=== PATIENT | female | born 1935 | race Caucasian/White ===

== ENCOUNTER 2016-03-18 18:20 | Emergency (ER) | payer MEDICARE, OTHER ==
--- NOTE | 2016-03-18 18:57 | ER Document Report ---
ED Medical Screen (RME) - General Stated Complaint: STOMACH PAIN Notes: stiff neck for 4 days down to her back, weakness with forgetfullness fever since last night headache started today admits to nausea without vomiting admits pyuria PMH HTN I have greeted and performed a rapid initial assessment of this patient. A comprehensive ED assessment and evaluation of the patient, analysis of test results and completion of the medical decision making process will be conducted by additional ED providers. - Related Data Allergies/Adverse Reactions: No Known Allergies Allergy (Verified 03/18/16 18:51)
--- NOTE | 2016-03-18 22:25 | ER Document Report ---
ED General - General Chief Complaint: Fever Stated Complaint: STOMACH PAIN Notes: Patient is a 80-year-old female presents with complaint of nausea, weakness, dysuria, one episode diarrhea. She also mild headache. She says her headache is gone. She says she currently feels very well. She says her pains come and go. She says she does have some pain on left side her neck when she moves her neck. This is been there for 3 days. She also says that she may have had a fever. She woke up with sweats 2 nights ago. She's had no documented fever. She did not take her temperature at home. No cough. No congestion. No runny nose. No chest pain. She does have a previous history of urinary tract infections. Family says she does have some dementia and therefore she sometimes forgets some of her previous symptoms. No new onset confusion. TRAVEL OUTSIDE OF THE [place] IN LAST 30 DAYS: No - Related Data Allergies/Adverse Reactions: No Known Allergies Allergy (Verified 03/18/16 18:51) Past Medical History - Social History Smoking Status: Never Smoker Chew tobacco use (# tins/day): No Frequency of alcohol use: None Drug Abuse: None Family History: Reviewed & Not Pertinent Patient has suicidal ideation: No Patient has homicidal ideation: No Renal/ Medical History: Denies: Hx Peritoneal Dialysis Review of Systems - Review of Systems Notes: My Normal Review Basic REVIEW OF SYSTEMS: CONSTITUTIONAL : Objective fever. EENT: Denies eye, ear, throat, or mouth pain or symptoms. Denies nasal or sinus congestion. CARDIOVASCULAR: Denies chest pain. RESPIRATORY: Denies cough, cold, or chest congestion. Denies shortness of breath, difficulty breathing, or wheezing. GASTROINTESTINAL: Denies abdominal pain. Nausea. Denies constipation. GENITOURINARY: Has dysuria. MUSCULOSKELETAL: Denies neck or back pain or joint pain or swelling. SKIN: Denies rash or skin lesions. NEUROLOGICAL: Denies altered mental status or loss of consciousness. Mild headache which is resolved.. Denies weakness or paralysis or loss of use of either side. Denies problems with gait or speech. Denies sensory or motor loss. ALL OTHER SYSTEMS REVIEWED AND NEGATIVE. Physical Exam - Vital signs Vitals: Temp Pulse Resp BP Pulse Ox 98.1 F 69 14 145/84 H 99 03/18/16 18:53 03/18/16 18:53 03/18/16 18:53 03/18/16 18:53 03/18/16 18:53 - Notes Notes: General Appearance: Well nourished, alert, cooperative, no acute distress, no obvious discomfort. Well appearing. Vitals: reviewed, See vital signs table. Head: no swelling or tenderness to the head Eyes: PERRL, EOMI, Conjuctiva clear Mouth: No decreasd moisture Throat: No tonsillar inflammation, No airway obstruction, No lymphadenopathy Neck: Supple, tenderness to palpation of the left cervical paraspinal musculature. This is easily reproducible with pinpoint Lungs: No wheezing, No rales, No rhonci, No accessory muscle use, good air exchange bilaterally. Heart: Normal rate, Regular rythm, No murmur, no rub Abdomen: Normal BS, soft, No rigidity, No abdominal tenderness, No guarding, no rebound, no abdominal masses, no organomegaly Extremities: strength 5/5 in all extremities, good pulses in all extremities, no swelling or tenderness in the extremities, no edema. Skin: warm, dry, appropriate color, no rash Neuro: speech clear, oriented x 3, normal affect, responds appropriately to questions. Course - Vital Signs Vital signs: Temp Pulse Resp BP Pulse Ox 98.1 F 69 14 145/84 H 99 03/18/16 18:53 03/18/16 18:53 03/18/16 18:53 03/18/16 18:53 03/18/16 18:53 - Laboratory Result Diagrams: 03/18/16 23:05 03/18/16 23:05 Laboratory results interpreted by me: 03/18/16 03/18/16 03/18/16 23:05 23:05 23:05 Plt Count 146 L Eosinophils % 8.5 H Absolute Eosinophils 0.8 H BUN 51 H Creatinine 1.73 H Est GFR ( Amer) 34 L Est GFR (Non-Af Amer) 28 L Urine Blood SMALL H Ur Leukocyte Esterase LARGE H - EKG Interpretation by Me Additional EKG results interpreted by me: 03/18/16 22:24 EKG is reviewed and interpreted by me. EKG shows normal sinus rhythm with rate of [address] segment elevation or depression. No ischemic T wave inversions. WA interval, QRS duration, QTC intervals are within normal range. No old EKG available for comparison. - Transfer of Care Notes: 03/19/16 05:56 Patient's urinalysis does show large leukocytes Estrace. She says her symptoms do feel very consistent with what she said in the past with UTI. Will treat her for UTI. She has no leukocytosis or fevers; however, she is weak appearing. She's not septic or toxic appearing. I do however feel that admission is appropriate being that she is weak, has a UTI, and is of older age. Patient is agreeable and is wants stay in hospital. I did speak with the hospitalist who agrees to admit the patient. Dictation of this chart was performed using voice recognition software; therefore, there may be some unintended grammatical errors. Discharge - Discharge Disposition: ELOPED Referrals: BRANDY JONES MD [Primary Care Provider] - Follow up as needed
[2016-03-18] MEDS ORDERED: NORMAL SALINE 1000 ML 1,000 ML IV ONE (22:43)
[2016-03-18 23:28] LABS: ABSOLUTE EOSINOPHILS # (AUTO) 0.8 10^3/uL (0.0-0.6); ABSOLUTE NEUT (AUTO) 5.4 10^3/uL (1.7-8.2); BASOPHILS % (AUTO) 0.3 % (0-2); EOSINOPHILS % (AUTO) 8.5 % (0-6); HEMOGLOBIN 13.5 g/dL (12.0-15.5); HGB HCT DIFFERENCE 0.5; LYMPHOCYTES % (AUTO) 21.8 % (13-45); MEAN CORPUSCULAR HEMOGLOBIN 30.6 pg (27.0-33.4); MEAN CORPUSCULAR HGB CONC 33.6 g/dL (32.0-36.0); MEAN CORPUSCULAR VOLUME 91 fl (80-97); MONOCYTES % (AUTO) 11.2 % (3-13); RED BLOOD COUNT 4.41 10^6/uL (3.72-5.28); RED CELL DISTRIBUTION WIDTH 13.9 % (11.5-14.0); SEGMENTED NEUTROPHILS % (AUTO) 58.2 % (42-78); WHITE BLOOD COUNT 9.2 10^3/uL (4.0-10.5)
[2016-03-18 23:39] LABS: ALANINE AMINOTRANSFERASE 18 U/L (9-52); ALBUMIN 4.6 g/dL (3.5-5.0); ALKALINE PHOSPHATASE 71 U/L (38-126); ANION GAP 19 (5-19); ASPARTATE AMINO TRANSFERASE 18 U/L (14-36); BILIRUBIN,TOTAL 0.8 mg/dL (0.2-1.3); BLOOD UREA NITROGEN 51 mg/dL (7-20); CALCIUM 9.8 mg/dL (8.4-10.2); CARBON DIOXIDE 22 mmol/L (22-30); CHLORIDE 100 mmol/L (98-107); CREATININE RESULT 1.73 mg/dL (0.52-1.25); GLUCOSE 85 mg/dL (75-110); POTASSIUM 4.3 mmol/L (3.6-5.0); SODIUM 141.2 mmol/L (137-145); TOTAL PROTEIN 8.1 g/dL (6.3-8.2)
[2016-03-18 23:44] LABS: APPEARANCE,URINE SLIGHTLY-CLOUDY; BILIRUBIN,URINE NEGATIVE (NEGATIVE); GLUCOSE, URINE NEGATIVE (NEGATIVE); KETONES,URINE NEGATIVE (NEGATIVE); LEUKOCYTE ESTERASE,URINE LARGE (NEGATIVE); NITRITE,URINE NEGATIVE (NEGATIVE); PROTEIN,URINE NEGATIVE (NEGATIVE); URINE SPECIFIC GRAVITY 1.013; UROBILINOGEN,URINE NEGATIVE mg/dL (<2.0)
[2016-03-18] MEDS ORDERED: CEFTRIAXONE INJ 1000 MG VIAL IV ONE (23:54)
[2016-03-19] MEDS ORDERED: CEFTRIAXONE 1 GM/D5W RTU 50 ML IV ONE (00:04)
[2016-03-19 01:27] VITALS: BP 145/84
--- NOTE | 2016-03-19 08:01 | EKG REPORT ---
SEVERITY:- ABNORMAL ECG - SINUS RHYTHM VENTRICULAR PREMATURE COMPLEX PROBABLE LEFT VENTRICULAR HYPERTROPHY NONSPECIFIC ST-T CHANGES- INFERIOR LEADS : Confirmed by: Zachary López MD 19-Mar-2016 08:00:05
== END 2016-03-19 03:06 | disposition left against medical advice (07) ==
LOC: ER 18:20
DX: N39.0 Urinary tract infection, site not specified (principal); R11.0 Nausea; R53.1 Weakness; R30.0 Dysuria; R19.7 Diarrhea, unspecified; M54.2 Cervicalgia; R61 Generalized hyperhidrosis; F03.90 Unspecified dementia, unspecified severity, without behavioral disturbance, psychotic disturbance, mood disturbance, and anxiety; Z53.20 Procedure and treatment not carried out because of patient's decision for unspecified reasons; Z87.440 Personal history of urinary (tract) infections
CPT/HCPCS: 93005; 99281; 96361; 96365; 36415; 87086; 85025; 87088; 80053; 81001; 93010; J7030; J0696

== ENCOUNTER 2017-03-27 15:05 | Emergency (ER) | payer MEDICARE, OTHER ==
--- NOTE | 2017-03-27 16:36 | ER Document Report ---
ED Medical Screen (RME) - General Chief Complaint: Foot Pain Stated Complaint: ANKLE PAIN Time Seen by Provider: 03/27/17 16:29 Mode of Arrival: Wheelchair Information source: Patient, Relative TRAVEL OUTSIDE OF THE [place] IN LAST 30 DAYS: No - HPI Patient complains to provider of: right ankle pain Notes: 03/27/17 16:35 Patient arrives with complaints of right ankle pain. She states that yesterday the ankle became red and swollen and painful. She states that she is not able to walk on it due to pain. She denies any traumatic injuries or falls. She denies fever. She is unsure but thinks that she has had gout in the past. She denies any numbness, tingling, weakness. Slight redness to the anterior and lateral right ankle with tenderness to palpation to this area. Pain with movement. Normal pulse and sensation distally. No redness or streaking up the leg. X-ray and blood work have been ordered from triage. Patient was evaluated in triage and was medically screened. Any pertinent orders based on the patient's complaints were ordered at this time. Patient will require further evaluation and will be taken to a room for further evaluation by another provider. This was explained to the patient and/or family at this time. - Related Data Allergies/Adverse Reactions: No Known Allergies Allergy (Verified 03/18/16 18:51) Past Medical History Renal/ Medical History: Denies: Hx Peritoneal Dialysis Physical Exam - Vital signs Vitals: Temp Pulse BP Pulse Ox 98.5 F 75 142/72 H 100 03/27/17 15:59 03/27/17 15:59 03/27/17 15:59 03/27/17 15:59 Course - Vital Signs Vital signs: Temp Pulse Resp BP Pulse Ox 98.5 F 75 142/72 H 100 03/27/17 15:59 03/27/17 15:59 03/27/17 15:59 03/27/17 15:59
--- NOTE | 2017-03-27 17:11 | RADIOLOGY REPORT (SQ) ---
EXAM DESCRIPTION: ANKLE RIGHT COMPLETE COMPLETED DATE/TIME: 03/27/2017 4:54 pm REASON FOR STUDY: pain COMPARISON: None. NUMBER OF VIEWS: Three views. TECHNIQUE: AP, lateral, and oblique radiographic images acquired of the right ankle. LIMITATIONS: None. FINDINGS: MINERALIZATION: Normal. BONES: No acute fracture or dislocation. A relative lucent area is identified at the level of the di stal fibula of uncertain etiology or significance. If further workup is deemed clinically warranted I would recommend MRI. JOINTS: No effusions. SOFT TISSUES: No soft tissue swelling. No foreign body. OTHER: No other significant finding. IMPRESSION: No evidence for acute fracture dislocation. A relative lucent area is identified at the level of the distal fibula as noted above of uncertain etiology or significance. If further workup is deemed clinically warranted I would recommend MRI. TECHNICAL DOCUMENTATION: JOB ID: [id number] [employer]- All Rights Reserved
--- NOTE | 2017-03-27 21:19 | ER Document Report ---
ED Extremity Problem, Lower - General Chief Complaint: Foot Pain Stated Complaint: ANKLE PAIN Time Seen by Provider: 03/27/17 16:29 Mode of Arrival: Wheelchair Notes: A 81-year-old female patient woke up today with extreme pain in her right foot. Denies any trauma. States it hurts on both the medial and lateral aspect of the right foot and right ankle. No fever. No chills. No sweats. Thinks that she has rheumatoid arthritis. Takes methotrexate but does not know why. No other complaints at this time. Never had a blood clot. TRAVEL OUTSIDE OF THE [place] IN LAST 30 DAYS: No - HPI Patient complains to provider of: Pain, Swelling Location: Ankle, Foot Occurred: This morning Where: Home Onset/Duration: Gradual, Constant Quality of pain: Throbbing Severity: Moderate Pain Level: 4 Context: denies: Crush, Direct blow, Fell Associated symptoms: denies: Chest pain, Chills, Dizzy, Fainting Exacerbated by: Movement, Walking Relieved by: Elevation, Rest - Related Data Allergies/Adverse Reactions: No Known Allergies Allergy (Verified 03/18/16 18:51) Past Medical History - General Information source: Patient, Relative - Social History Smoking Status: Never Smoker Chew tobacco use (# tins/day): No Frequency of alcohol use: None Drug Abuse: None Lives with: Family Family History: Reviewed & Not Pertinent Patient has suicidal ideation: No Patient has homicidal ideation: No - Past Medical History Cardiac Medical History: Reports: Hx Heart Attack, Hx Hypercholesterolemia, Hx Hypertension Renal/ Medical History: Denies: Hx Peritoneal Dialysis Musculoskeltal Medical History: Reports Hx Arthritis Past Surgical History: Reports: Hx Appendectomy, Hx Cardiac Catheterization, Hx Hysterectomy Review of Systems - Review of Systems Constitutional: denies: Chills, Diaphoresis, Fever, Malaise, Weakness EENT: No symptoms reported Cardiovascular: No symptoms reported Respiratory: No symptoms reported Gastrointestinal: No symptoms reported Genitourinary: No symptoms reported Musculoskeletal: See HPI, Joint swelling, Ankle swelling Skin: No symptoms reported Hematologic/Lymphatic: No symptoms reported Neurological/Psychological: No symptoms reported Physical Exam - Vital signs Vitals: Temp Pulse BP Pulse Ox 98.5 F 75 142/72 H 100 03/27/17 15:59 03/27/17 15:59 03/27/17 15:59 03/27/17 15:59 Interpretation: Normal - General General appearance: Appears well, Alert - HEENT Head: Normocephalic, Atraumatic Eyes: Normal Pupils: PERRL - Respiratory Respiratory status: No respiratory distress Chest status: Nontender Breath sounds: Normal Chest palpation: Normal - Cardiovascular Rhythm: Regular Heart sounds: Normal auscultation Murmur: No - Abdominal Inspection: Normal Distension: No distension Bowel sounds: Normal Tenderness: Nontender Organomegaly: No organomegaly - Back Back: Normal, Nontender - Extremities General upper extremity: Normal inspection, Nontender, Normal color, Normal ROM , Normal temperature General lower extremity: Tender, Edema, Normal ROM, Normal temperature, Other - redness noted to the medial and lateral right foot with tenderness to palpation. There is no tenderness to palpation of the actual medial or lateral malleolus. No: Normal color, Normal weight bearing, Raymon's sign - Neurological Neuro grossly intact: Yes Cognition: Normal Orientation: AAOx4 Clarence Coma Scale Eye Opening: Spontaneous Braulio Coma Scale Verbal: Oriented Clarence Coma Scale Motor: Obeys Commands Clarence Coma Scale Total: 15 Speech: Normal Motor strength normal: LUE, RUE, LLE, RLE Sensory: Normal - Psychological Associated symptoms: Normal affect, Normal mood - Skin Skin Temperature: Warm Skin Moisture: Dry Skin Color: Normal Course - Re-evaluation Re-evalutation: 03/27/17 21:54 Likely patient suffering some sort of rheumatological flareup. Labs are pending. Will get ultrasound. Toradol. Some Solu-Medrol and reassess. 03/27/17 22:40 Negative for DVT. No obvious fracture. There is some swelling to the right foot and ankle. With her history of rheumatological issues more likely this represents a flareup. Toradol given. Solu-Medrol given. There does not appear to be an infection. Patient does not have a fever. The skin is warm to the touch but does not have any lymphangitic streaking or signs of cellulitis. We will advised that she placed ice packs, elevate and follow-up with her regular doctor. Return for any worsening symptoms or concerns. - Vital Signs Vital signs: Temp Pulse Resp BP Pulse Ox 98.5 F 75 142/72 H 100 03/27/17 15:59 03/27/17 15:59 03/27/17 15:59 03/27/17 15:59 - Laboratory Result Diagrams: 03/27/17 18:12 03/27/17 18:12 Laboratory results interpreted by me: 03/27/17 03/27/17 18:12 18:12 WBC 10.8 H Hgb 11.9 L Hct 35.1 L RDW 14.9 H ESR 53 H BUN 40 H Est GFR ( Amer) 52 L Est GFR (Non-Af Amer) 43 L Uric Acid 8.0 H Calcium 10.4 H C-Reactive Protein 31.8 H Discharge - Discharge Clinical Impression: Rheumatoid arthritis flare Condition: Good Disposition: HOME, SELF-CARE Instructions: Arthritis ([facility]), Rheumatoid Arthritis ([facility]) Additional Instructions: These follow-up with your regular doctor in 1-2 days for repeat evaluation. If you develop fever, chills, worsening redness or swelling especially if the redness is going up your leg it is very important that you return as this could represent an infection and not arthritis. Please try and keep the foot elevated. You may use ice packs but did not place ice packs directly on the skin. Take all of your regular medications as instructed. Begin taking her methotrexate as instructed. Prescriptions: Methylprednisolone [Medrol Dosepack (4 mg/Tab) 21 Tab/Dosepak] 4 mg PO ASDIR PRN #21 tab.[email or web address] PRN Reason:
[2017-03-27 21:35] LABS: ABSOLUTE LYMPHOCYTES (AUTO) 1.8 10^3/uL (0.5-4.7); BASOPHILS % (AUTO) 0.2 % (0-2); EOSINOPHILS % (AUTO) 0.2 % (0-6); HEMATOCRIT 35.1 % (36.0-47.0); HEMOGLOBIN 11.9 g/dL (12.0-15.5); LYMPHOCYTES % (AUTO) 16.4 % (13-45); MEAN CORPUSCULAR HGB CONC 33.8 g/dL (32.0-36.0); MEAN CORPUSCULAR VOLUME 92 fl (80-97); PLATELET COUNT 181 10^3/uL (150-450); RED BLOOD COUNT 3.82 10^6/uL (3.72-5.28); RED CELL DISTRIBUTION WIDTH 14.9 % (11.5-14.0); SEGMENTED NEUTROPHILS % (AUTO) 74.2 % (42-78); TOTAL CELLS COUNTED % (AUTO) 100 %; WHITE BLOOD COUNT 10.8 10^3/uL (4.0-10.5)
[2017-03-27] MEDS ORDERED: KETOROLAC TROMETHAMINE INJ/PF 30 MG/1 ML SDV IV ONE (21:46)
[2017-03-27] MEDS ORDERED: METHYLPREDNISOLONE INJ 125 MG/2 ML SDV IV ONE (21:47)
[2017-03-27 21:48] LABS: ALANINE AMINOTRANSFERASE 24 U/L (9-52); ALBUMIN 4.6 g/dL (3.5-5.0); ALKALINE PHOSPHATASE 62 U/L (38-126); ANION GAP 13 (5-19); ASPARTATE AMINO TRANSFERASE 17 U/L (14-36); BILIRUBIN,DIRECT 0.2 mg/dL (0.0-0.4); BILIRUBIN,TOTAL 0.6 mg/dL (0.2-1.3); BLOOD UREA NITROGEN 40 mg/dL (7-20); C-REACTIVE PROTEIN 31.8 mg/L (<10.0); CALCIUM 10.4 mg/dL (8.4-10.2); CARBON DIOXIDE 24 mmol/L (22-30); CHLORIDE 105 mmol/L (98-107); GLUCOSE 99 mg/dL (75-110); POTASSIUM 4.3 mmol/L (3.6-5.0); SODIUM 141.9 mmol/L (137-145); TOTAL PROTEIN 7.6 g/dL (6.3-8.2)
[2017-03-27 22:15] LABS: ERYTHROCYTE SEDIMENTATION RATE 53 mm/hr (0-30)
--- NOTE | 2017-03-27 23:29 | RADIOLOGY REPORT (SQ) ---
EXAM DESCRIPTION: VENOUS UNILATERAL LOWER COMPLETED DATE/TIME: 03/27/2017 10:45 pm REASON FOR STUDY: pain left leg COMPARISON: None. TECHNIQUE: Dynamic and static philip scale and color images acquired of the right leg venous system. S elected spectral images acquired with additional compression and augmentation maneuvers. The contrala teral common femoral vein and saphenofemoral junction were also imaged. Images stored on PACS. LIMITATIONS: None. FINDINGS: COMMON FEMORAL: Normal phasicity, compression and augmentation. No visualized echogenic ma terial on philip scale. No defects on color images. FEMORAL: Normal compression and augmentation. No visualized echogenic material on philip scale. No defe cts on color images. POPLITEAL: Normal compression, augmentation. No visualized echogenic material on philip scale. No defec ts on color images. CALF VESSELS: Normal compression, augmentation. No visualized echogenic material on philip scale. No de fects on color images. GSV and SSV: Normal compression, augmentation. No visualized echogenic material on philip scale. No def ects on color images. ANY DEEP VENOUS INSUFFICIENCY: Not evaluated. ANY EVIDENCE OF POPLITEAL CYST: No. OTHER: No other significant finding. CONTRALATERAL COMMON FEMORAL VEIN AND SAPHENOFEMORAL JUNCTION: Normal phasicity, compression and augmentation. No visualized echogenic material on philip scale. No de fects on color images. IMPRESSION: NO EVIDENCE DVT OR SVT IN THE RIGHT LEG. TECHNICAL DOCUMENTATION: JOB ID: [id number] [employer]- All Rights Reserved
[2017-03-27 23:35] VITALS: BP 132/75
== END 2017-03-27 23:35 | disposition home or self-care (01) ==
LOC: ER 15:05
DX: M06.9 Rheumatoid arthritis, unspecified (principal); M79.671 Pain in right foot; M25.571 Pain in right ankle and joints of right foot
CPT/HCPCS: 99284; 96374; 96375; 84550; 85025; 85652; 86140; 80053; 93971; 73610; J2930; J1885